=== PATIENT | male | born 1945 | race African-American/Black ===

== ENCOUNTER 2021-09-23 03:56 | Emergency (ER) | payer MEDICARE, MEDICAID ==
[~2021-09-23] VITALS: Ht 170.2 cm; Wt 91.0 kg
[2021-09-23 04:03] VITALS: BP 140/88
== END 2021-09-23 05:10 | disposition home or self-care (01) ==
LOC: ER 03:56
DX: Z46.6 Encounter for fitting and adjustment of urinary device (principal); J45.909 Unspecified asthma, uncomplicated
CPT/HCPCS: 99283